=== PATIENT | female | born 1945 | race Caucasian/White ===

== ENCOUNTER 2016-02-11 11:00 | Outpatient (RCR) | payer OTHER | END 2016-03-08 | disposition home or self-care (01) | LOC: MERGE 11:00 → PTY 11:00 | DX: M25.511 Pain in right shoulder (principal) ==

== ENCOUNTER 2016-05-18 10:00 | Outpatient (RCR) | payer OTHER | END 2016-06-05 | disposition home or self-care (01) | LOC: PTY 10:00 | DX: M25.562 Pain in left knee (principal) ==

== ENCOUNTER 2016-06-07 13:00 | Outpatient (RCR) | payer OTHER | END 2016-07-06 | disposition home or self-care (01) | LOC: PTY 13:00 | DX: M25.562 Pain in left knee (principal); M25.511 Pain in right shoulder ==

== ENCOUNTER 2017-02-23 12:45 | Outpatient (RCR) | payer OTHER | END 2017-03-08 | disposition home or self-care (01) | LOC: PTY 12:45 | DX: M75.101 Unspecified rotator cuff tear or rupture of right shoulder, not specified as traumatic (principal) ==

== ENCOUNTER 2017-03-14 13:00 | Outpatient (RCR) | payer OTHER | END 2017-04-05 | disposition home or self-care (01) | LOC: PTY 13:00 | DX: M75.101 Unspecified rotator cuff tear or rupture of right shoulder, not specified as traumatic (principal) ==

== ENCOUNTER 2017-04-06 14:00 | Outpatient (RCR) | payer OTHER | END 2017-05-06 | disposition home or self-care (01) | LOC: PTY 14:00 | DX: M75.101 Unspecified rotator cuff tear or rupture of right shoulder, not specified as traumatic (principal) ==

== ENCOUNTER 2017-05-09 13:00 | Outpatient (RCR) | payer OTHER | END 2017-06-05 | disposition home or self-care (01) | LOC: PTY 13:00 | DX: M75.101 Unspecified rotator cuff tear or rupture of right shoulder, not specified as traumatic (principal) ==